=== PATIENT | male | born 1980 | race Caucasian/White ===

== ENCOUNTER → 2022-12-07 | Outpatient (CLI) | payer BC ==
--- NOTE | 2022-12-07 09:03 | CT ---
EXAMINATION TYPE: CT brain wo con CT DLP: 1121 mGycm, Automated exposure control for dose reduction was used. DATE OF EXAM: 12/07/2022 8:41 AM COMPARISON: None. Prior CT Brain from . CLINICAL INDICATION:Male, 42 years old with history of R42 DIZZINESS GIDDINESS, Dizziness and syncope TECHNIQUE: Brain: Multiple axial CT images of the brain were obtained without IV contrast. Coronal and sagittal reformats reviewed. FINDINGS: Brain: Extra-axial spaces: No abnormal extra-axial fluid collections. Ventricular system: Within normal limits Cerebral parenchyma: No acute intraparenchymal hemorrhage or mass effect. The zapata-white junction is well differentiated. Cerebellum: Unremarkable. Mass effect: No evidence of midline shift. Intracranial vasculature: unremarkable Soft tissues: Normal. Calvarium/osseous structures: No depressed skull fracture. Paranasal sinuses and mastoid air cells: Clear Visualized orbits: Orbital contents are intact. Other: Cerumen in both external auditory canals. IMPRESSION: No acute intracranial process.
== END | disposition home or self-care (01) ==
LOC: RADCTMAIN 08:18
PROVIDERS: ATTEND Family Medicine
DX: R42 Dizziness and giddiness (principal)
CPT/HCPCS: 70450

== ENCOUNTER 2023-12-29 16:30 | Emergency (ER) | payer BC ==
[2023-12-29] MEDS: HYDROmorphone 1 MG/ML 1 ML SYRINGE IVP STA ×2 (17:23→19:28)
[2023-12-29] MEDS: DIPH,PERTUS(ACELL)TETVAC-LF 0.5 ML VIAL IM ONE (17:28)
--- NOTE | 2023-12-29 17:29 | ED ---
General Adult HPI - General Chief complaint: Wound/Laceration Stated complaint: R hand lac Time Seen by Provider: 12/29/23 16:48 Source: patient, EMS Mode of arrival: EMS Limitations: no limitations - History of Present Illness Initial comments: 43-year-old male presenting with chief complaint of chainsaw injury to the right hand. Patient was trimming trees when he over the posterior thenar portion of the hand. There is a large laceration. Very limited range of motion. He does not remember when his last tetanus shot was. Bleeding is well-controlled at this time. He was placed in a splint by EMS. He is right-handed. - Related Data Allergies Allergy/AdvReac Type Severity Reaction Status Date / Time No Known Allergies Allergy Verified 12/29/23 16:46 Review of Systems ROS Statement: Those systems with pertinent positive or pertinent negative responses have been documented in the HPI. ROS Other: All systems not noted in ROS Statement are negative. General Exam Limitations: no limitations General appearance: alert, in no apparent distress Head exam: Present: atraumatic, normocephalic Eye exam: Present: normal appearance, EOMI Neck exam: Present: normal inspection. Absent: meningismus Respiratory exam: Absent: respiratory distress Cardiovascular Exam: Present: regular rate Right Hand Wrist exam: Present: tenderness, laceration (5 in), deformity. Absent: full ROM Neurological exam: Present: alert, oriented X3 Psychiatric exam: Present: normal affect, normal mood Course Vital Signs 12/29/23 12/29/23 12/29/23 16:34 17:40 19:26 Temperature 98.7 F 98.5 F Pulse Rate 84 73 76 Respiratory 16 18 16 Rate Blood Pressure 130/80 117/65 112/63 O2 Sat by Pulse 99 99 99 Oximetry Medical Decision Making - Medical Decision Making Was pt. sent in by a medical professional or institution (, PA, TEACHER VISUALLY IMPAIRED, urgent care, hospital, or snf...) When possible be specific @ -No Did you speak to anyone other than the patient for history (EMS, parent, family, police, friend...)? What history was obtained from this source @ -No Did you review nursing and triage notes (agree or disagree)? Why? @ -I reviewed and agree with nursing and triage notes Were old charts reviewed (outside hosp., previous admission, EMS record, old EKG, old radiological studies, urgent care reports/EKG's, snf records)? Report findings @ -No old charts were reviewed Differential Diagnosis (chest pain, altered mental status, abdominal pain women, abdominal pain men, vaginal bleeding, weakness, fever, dyspnea, syncope, headache, dizziness, GI bleed, back pain, seizure, CVA, palpatations, mental health, musculoskeletal)? @ -Differential includes uncomplicated laceration, tendon injury, vessel injury, fracture, this is not an all-inclusive list EKG interpreted by me (3pts min.). @ -As above X-rays interpreted by me (1pt min.). @ -X-ray shows comminuted fracture of the second metacarpal CT interpreted by me (1pt min.). @ -None done U/S interpreted by me (1pt. min.). @ -None done What testing was considered but not performed or refused? (CT, X-rays, U/S, labs)? Why? @ -None What meds were considered but not given or refused? Why? @ -None Did you discuss the management of the patient with other professionals ( professionals i.e. , PA, TEACHER VISUALLY IMPAIRED, lab, RT, psych nurse, social service agency director, paper plate machine tender, teacher, v/stol landing signal officer, field case manager)? Give summary @ -I spoke with Dr. Walden from [facility] accepts admission Was smoking cessation discussed for >3mins.? @ -No Was critical care preformed (if so, how long)? @ -No Were there social determinants of health that impacted care today? How? (Homelessness, low income, unemployed, alcoholism, drug addiction, transportation, low edu. Level, literacy, decrease access to med. care, fci, rehab)? @ -No Was there de-escalation of care discussed even if they declined (Discuss DNR or withdrawal of care, Hospice)? DNR status @ -No What co-morbidities impacted this encounter? (DM, HTN, Smoking, COPD, CAD, Cancer, CVA, ARF, Chemo, Hep., AIDS, mental health diagnosis, sleep apnea, morbid obesity)? @ -None Was patient admitted / discharged? Hospital course, mention meds given and route, prescriptions, significant lab abnormalities, going to OR and other pertinent info. @ -43-year-old male presenting with chief complaint of chainsaw injury to the right hand. Patient has a large laceration to the dorsal aspect of the right hand. X-rays positive for comminuted fracture. He is given 1 g of Ancef for open fracture. His tetanus is updated. The wound is dressed. Given that the patient has an open fracture with tendon involvement he will require transfer for hand surgery. He will be transferred to [facility]. Patient is agreeable with this plan. I discussed this case with my attending Dr. Winchester Undiagnosed new problem with uncertain prognosis? @ -No Drug Therapy requiring intensive monitoring for toxicity (Heparin, Nitro, Insulin, Cardizem)? @ -No Were any procedures done? @ -No Diagnosis/symptom? @ -Open fracture of the second metacarpal with tendon involvement Acute, or Chronic, or Acute on Chronic? @ -Acute Uncomplicated (without systemic symptoms) or Complicated (systemic symptoms)? @ -Complicated Side effects of treatment? @ -No Exacerbation, Progression, or Severe Exacerbation? @ -No Poses a threat to life or bodily function? How? (Chest pain, [place], [place], pneumonia, PE, COPD, DKA, ARF, appy, cholecystitis, CVA, Diverticulitis, Homicidal, Suicidal, threat to staff... and all critical care pts) @ -Yes poses threat to long-term function of hand Disposition Clinical Impression: Open fracture of second metacarpal bone Disposition: OTHER INSTITUTION NOT DEFINED Condition: Serious Referrals: Wiliam Hyatt MD [Primary Care Provider] - 1-2 days Time of Disposition: 18:14 - Out of Hospital Transfer - Req. Specs Out of Hospital Transfer - Requested Specifics: Other Emergency Center ([facility])
[2023-12-29] MEDS: LIDOCAINE 1% INJ 10MG/ML (20 ML MDV) SQ ONE (17:39)
--- NOTE | 2023-12-29 18:16 | XR ---
EXAMINATION TYPE: XR hand complete RT DATE OF EXAM: 12/29/2023 COMPARISON: NONE HISTORY: 43-year-old male pain after chainsaw injury TECHNIQUE: 3 views FINDINGS: Chain saw injury with laceration to the dorsal and radial side of the hand. There is a comm inuted fracture with disruption of the distal third second metacarpal shaft. A bony fragment measurin g 1.3 cm long is rotated into the first webspace. IMPRESSION: Large soft tissue injury involving the dorsal and radial aspect of the hand. Underlying comminuted fr acture of the distal segment of the second metacarpal shaft. A 1.3 cm bony fragment is rotated into t he first webspace. [facility], , 12/29/2023 6:14 PM
[2023-12-29 19:28] VITALS: BP 112/63; PULSE 76; RESP 16; TEMP 98.5
== END 2023-12-29 19:25 | disposition other institution (70) ==
LOC: EC 16:30
CPT/HCPCS: 90471; 90715; 96365; 96375; 96376; 99284